=== PATIENT | male | born 1930 | race Caucasian/White ===

== ENCOUNTER 2017-07-06 12:33 | Inpatient (IN) | payer MEDICARE ==
[2017-07-06 14:02] LABS: #Basophils 0.1 thou/uL (0.0-0.2); #Eosinphils 0.1 thou/uL (0.0-0.7); #Lymphocytes 2.6 thou/uL (1.20-3.40); #Monocytes 0.5 thou/uL (0.11-0.59); #Neutrophils 4.9 thou/uL (1.40-6.50); %Basophils 1.1 % (0.0-1.0); %Eosinophils 1.4 % (0.0-10.0); %Lymphocytes 31.6 % (21.0-51.0); %Monocytes 5.5 % (0.0-10.0); Hematocrit 46.1 % (42.0-52.0); Mean Platelet Volume 7.3 fL (7.4-10.4); Red Blood Cell (RBC) Count 4.88 mill/uL (4.70-6.10); White Blood Cell (WBC) Count 8.2 thou/uL (4.8-10.8)
[2017-07-06 14:09] LABS: ALT (SGPT) 11 U/L (8-55); AST (SGOT) 16 U/L (5-34); Alkaline Phosphatase 64 U/L (40-150); Anion Gap 15 mmol/L (10-20); BUN (Urea Nitrogen) 25 mg/dL (8.4-25.7); Bilirubin, Total 1.2 mg/dL (0.2-1.2); Calc. Creatinine Clearance 0 mL/min (70-130); Calcium 9.1 mg/dL (7.8-10.44); Carbon Dioxide 27 mmol/L (23-31); Chloride 108 mmol/L (98-107); Estimated GFR-MDRD 70; Globulin 3.3 g/dL (2.4-3.5); Protein, Total 6.8 g/dL (5.8-8.1)
[2017-07-06 14:14] LABS: Bilirubin Negative (Negative); Blood, Urine Negative (Negative); Glucose, Urine (Dipstick) Negative (Negative); Ketone, Urine Negative (Negative); Nitrite Negative (Negative); Protein, Urine (Dipstick) Negative (Neg-Trace); Urobilinogen 0.2 mg/dL (0.2-1.0)
[2017-07-06 14:15] LABS: Troponin I 0.017 ng/mL (< 0.028)
[2017-07-06 14:27] LABS: Bacteria/HPF None Seen HPF (None Seen); Hyaline Casts/LPF 4-6 HYALINE CAST LPF (0-3 Hyaline); Squamous Epithelial 0-3 HPF (0-3)
--- NOTE | 2017-07-06 14:31 | CT ---
CT HEAD NONCONTRAST: Date: 07/06/17 HISTORY: Altered mental status. COMPARISON: 01/22/08. FINDINGS: There is no evidence of acute intracranial hemorrhage or infarct. Diffuse cortical atrophy is simila r in appearance to the previous exam. There is no mass effect or shift of midline structures. Visual ized paranasal sinuses remain well aerated. IMPRESSION: No acute intracranial abnormalities are demonstrated on noncontrast CT head. POS: [facility]
--- NOTE | 2017-07-06 14:56 | RAD ---
AP VIEW CHEST: HISTORY: Altered mental status. DATE: 07/06/17. COMPARISON: Comparison is made to previous exam from 04/09/17. FINDINGS: AP view chest demonstrates ectasia of the aorta. Intracardiac pacing device is seen. Cardiomegaly is noted. Mild to moderate pulmonary vascular congestion is seen. No evidence of effusions, pneumo david, or pneumothorax is seen. IMPRESSION: Unremarkable AP view chest. POS: [facility]
[2017-07-06 16:26] LABS: Magnesium 2.6 mg/dL (1.6-2.6); Phosphorus 3.6 mg/dL (2.3-4.7)
[2017-07-06 17:25] VITALS: BMI 34.5
[2017-07-06] MEDS ORDERED: Acetaminophen 325 MG TAB PO PRN (17:32)
[2017-07-06] MEDS ORDERED: Ondansetron HCl/PF 4 MG/2 ML Vial IVP PRN ×2 (17:32→18:46)
[2017-07-06] MEDS ORDERED: Ondansetron ODT 4 MG TAB SL PRN (17:32)
[2017-07-06] MEDS ORDERED: FLU VACC TS2017-18 (>65YR) 0.5 ML SYRINGE IM ONE (18:30)
[2017-07-06] MEDS ORDERED: Eucerin (Mineral Oil/Petrolatum,White) 30 gm Jar TOP PRN (18:38)
[2017-07-06] MEDS ORDERED: Polyethylene Glycol 3350 17 GM Packet PO PRN (18:38)
[2017-07-06] MEDS ORDERED: cloNIDine HCl 0.1 MG TAB PO PRN (18:38)
[2017-07-06] MEDS ORDERED: Diabetic Tussin 200 MG/10 ML UDCUP PO PRN (18:38)
[2017-07-06] MEDS ORDERED: Loratadine 10 MG TAB PO PRN (18:38)
[2017-07-06] MEDS ORDERED: Nitroglycerin 0.4 MG TAB (25 Tab Bottle) PO PRN (18:42)
[2017-07-06] MEDS ORDERED: Calcium Carbonate 500 MG ChewTAB PO PRN (18:46)
[2017-07-06] MEDS ORDERED: Ondansetron ODT 4 MG TAB PO PRN (18:46)
[2017-07-06] MEDS ORDERED: Senokot 8.6 MG TAB PO PRN (18:46)
[2017-07-06] MEDS ORDERED: Sodium Chloride 0.9% 1,000 ML IV SCH (19:00)
--- NOTE | 2017-07-06 19:08 | HP ---
DATE OF ADMISSION: 07/06/2017 PRIMARY CARE PHYSICIAN: Dr. Vin Jiang. PRIMARY ELECTROMEDICAL SERVICE ENGINEER: Dr. Rashaun Leon. CODE STATUS: FULL CODE. Surrogate decision maker is daughterPamela. CHIEF COMPLAINT: Altered mentation. HISTORY OF PRESENT ILLNESS: The patient is an 87-year-old male with chronic atrial fibrillation on anticoagulation, coronary artery disease, hypertension, and COPD, presented to the emergency room wi th altered mentation. At this time, not much information is available from the patient. History ob tained from the son at the bedside. The patient currently lives at home with his family. Ambulates with the help of a cane. He is able to communicate with the family. Over the last two days, the patient has been confused, especially in the morning and in the evenings . The confusion each time lasts up to 2-3 hours. He also had some loose stools on and off over the last 1 week. No fall stroke-like symptoms reported. The patient was generally weak. He sometimes had a blank stare when asked any questions. He is usually very talkative. No chest pain, shortnes s of breath, palpitations, fevers or chills reported. In the emergency room, initial vital signs showed temperature 97.9, respirations 18, pulse of 74 wit h blood pressure 108/67 with O2 saturation of 97% on room air. His initial CT scan of the brain was normal. Chest x-ray was negative for infiltrate or significant edema. His EKG showed paced rhythm . Cardiac enzymes were normal. His urinalysis showed 4-6 WBCs with 4-6 hyaline cast with small jermaine kocyte esterase. Urine cultures were sent. He received a dose of ciprofloxacin in the emergency ro om. PAST MEDICAL HISTORY: 1. Sick sinus syndrome, status post pacemaker in 2007. 2. Chronic atrial fibrillation on anticoagulation. 3. COPD. 4. Obesity with a BMI of 34.6. 5. Peripheral vascular disease. 6. Chronic venous stasis. 7. Diet controlled diabetes mellitus type 2. 8. History of [id number] aortic stenosis. PAST SURGICAL HISTORY: 1. Pacemaker placement. 2. Amputation of the first digit. 3. Testicular surgery. ALLERGIES: The patient is allergic to PENICILLIN. CURRENT HOME MEDICATIONS: The patient takes Xarelto 20 mg daily, Lasix 40 mg daily, potassium chlor pili 10 mEq daily, he takes other [id number] supplements. FAMILY HISTORY: Positive for hypertension. SOCIAL HISTORY: As discussed above. No smoking, alcohol or drug use. REVIEW OF SYSTEMS: Cannot be reliably obtained from the patient due to current cognitive status. PHYSICAL EXAMINATION: VITAL SIGNS: As discussed above. GENERAL: An 87-year-old male in no apparent distress, appears comfortable. HEENT: Head: Atraumatic and normocephalic, sclerae are anicteric. Dry mucous membranes. No oral lesion. NECK: Supple, no JVD, no carotid bruit. LUNGS: Showed scattered rhonchi. There was no significant wheezing. There were minimal rales at b ases. Lungs were symmetrical. CARDIOVASCULAR: Heart S1, S2 present. Heart sounds were somewhat distant. No significant rubs or gallops appreciated. There was a 2/6 systolic ejection murmur over the aortic area. ABDOMEN: Soft, nontender, bowel sounds present. EXTREMITIES: There are changes from chronic venous stasis in bilateral lower extremities up to the mid leg. There is 1+ edema in bilateral lower extremities. No calf tenderness. SKIN: Warm and dry. LYMPH NODES: No palpable lymph nodes in the neck. PERIPHERAL VASCULAR: Radial pulses palpable bilaterally. MUSCULOSKELETAL: No joint swelling or tenderness. PSYCHIATRY: The patient is alert and awake with on and off orientation. NEUROLOGIC: Exam was limited due to current cognitive status. Limited examination showed cranial n erves II-XII normal on examination. Power was 4-5/5 in all extremities. Sensation to touch was nor mal bilaterally. LABORATORY FINDINGS: As discussed above. Creatinine was 1.01 with BUN 25. Sodium 146, potassium 4 .4, and chloride of 108. CBC showed WBC 8.2 with hemoglobin 14.2. EKG and chest x-ray by my review as discussed above. IMPRESSION: 1. Toxic metabolic encephalopathy, suspected secondary to urinary tract infection. We will rule ou t other etiology. 2. Chronic atrial fibrillation on anticoagulation with Xarelto. 3. Chronic obstructive pulmonary disease. The patient does not use any nebulizer treatments or oxy gen at home. 4. Hypertension, currently not on any medications. 5. Diet controlled diabetes mellitus type 2. 6. Coronary artery disease followed by Dr. Rashaun Leon. 7. Sick sinus syndrome, status post pacemaker. 8. Peripheral vascular disease. 9. Chronic lower extremity venous stasis. 10. Obesity with a body mass index 34.6. PLAN: The patient will be monitored in the stroke unit. We will hold aspirin due to advanced age. The patient is already on Xarelto, which will be continued. Empiric antibiotics will be started fo r urinary tract infection. We will also get renal stone protocol to rule out obstructive uropathy. We will repeat labs in a.m. We will check vitamin B12 and folic acid. We will hold diuretics for now. Echocardiogram will be done. Fall precautions. precautions. We will avoid SCDs d ue to peripheral vascular disease. Plan of care was discussed with the patient and the family at the bedside, they stated understanding . The patient will require at least 2-3 days for stabilization.
[2017-07-06] MEDS: Rivaroxaban 10 MG TAB PO SCH (20:39)
[2017-07-06] MEDS: Meropenem 1 GM in Sodium Chloride 0.9% 100 ML IVPB SCH (20:39)
[2017-07-06] MEDS: Famotidine 20 MG TAB PO SCH (20:40)
[2017-07-06] MEDS: Docusate 100 MG CAP PO SCH (20:40)
[2017-07-07] MEDS: Meropenem 1 GM in Sodium Chloride 0.9% 100 ML IVPB SCH (04:19)
[2017-07-07 05:16] LABS: Anion Gap 9 mmol/L (10-20); BUN (Urea Nitrogen) 22 mg/dL (8.4-25.7); BUN/Creatinine Ratio 21.57; Calc. Creatinine Clearance 72 mL/min (70-130); Calcium 8.4 mg/dL (7.8-10.44); Carbon Dioxide 27 mmol/L (23-31); Chloride 107 mmol/L (98-107); Cholesterol 123 mg/dl (< 200 Desired); Estimated GFR-MDRD 69; LDL Cholesterol, Calculated 77 mg/dL; Phosphorus 3.2 mg/dL (2.3-4.7)
[2017-07-07] MEDS ORDERED: FLU VACC TS2017-18 (>65YR) 0.5 ML SYRINGE IM ONE (09:00)
[2017-07-07] MEDS ORDERED: Folic Acid 1 MG TAB PO SCH (09:00)
--- NOTE | 2017-07-07 09:10 | CT ---
CT ABDOMEN AND PELVIS NONCONTRAST: HISTORY: Urinary tract infection. Joint pain. FINDINGS: No comparison. Each renal collecting system and ureter are decompressed. A 0.7 cm calculus is pres ent within a nondilated calyx at the inferior pole of the left kidney. At least 4 calcifications we re present within nondilated calyces of the right kidney, measuring up to 0.7 cm greatest diameter. The urinary bladder is incompletely distended. Lack of contrast limits evaluation for other abnormalities. There is mild atelectasis at the lung b ases. Atrophy of each kidney is noted. There is calcification in the arterial structures. Fat pro trudes into an umbilical hernia. The multilobular gaseous and high-density structure in the right u pper quadrant has the appearance of gallstones. There are degenerative changes of the lumbar spine. IMPRESSION: 1. Nonobstructing 7 mm bilateral renal calculi. No evidence of urinary tract obstruction. 2. Cholelithiasis. 3. Atherosclerosis. POS: [facility]
[2017-07-07] MEDS: Multivit, Therapeutic 1 TAB PO SCH (09:36)
[2017-07-07] MEDS: Folic Acid 1 MG TAB PO SCH ×2 (09:37→20:44)
[2017-07-07] MEDS: Famotidine 20 MG TAB PO SCH ×2 (09:37→20:44)
[2017-07-07] MEDS: Docusate 100 MG CAP PO SCH (09:38)
[2017-07-07] MEDS: Cyanocobalamin (Vitamin B-12) 1,000 MCG TAB PO SCH (09:38)
--- NOTE | 2017-07-07 12:09 | PDOC.PN ---
- Subjective Encounter Start Date: 07/07/17 Encounter Start Time: 10:30 Patient seen and examined. No new complaints. No overnight events. Mentation improving. - Objective Resuscitation Status: Resuscitation Status FULL:Full Resuscitation MAR Reviewed: Yes Vital Signs & Weight: Vital Signs (12 hours) Temp Pulse Pulse Pulse Resp BP BP 07/07/17 11:48 97.5 F L 72 14 07/07/17 10:07 82 95 136/61 121/65 07/07/17 08:00 97.8 F 70 14 07/07/17 07:43 97.8 F 70 14 07/07/17 03:44 98.6 F 72 20 07/07/17 00:23 07/07/17 00:17 98.3 F 73 20 BP Pulse Ox 07/07/17 11:48 129/60 92 L 07/07/17 10:07 07/07/17 08:00 93 L 07/07/17 07:43 87/50 L 93 L 07/07/17 03:44 113/56 L 97 07/07/17 00:23 117/53 L 07/07/17 00:17 96/47 L 97 Weight Weight 227 lb 5 oz I&O: 07/06/17 07/07/17 07/08/17 06:59 06:59 06:59 Intake Total 1085 Balance 1085 Result Diagrams: 07/06/17 13:08 07/07/17 04:36 Radiology Reviewed by me: Yes (CT abd - renal calculi, cholelithiasis) EKG Reviewed by me: Yes (Tele paced/underlying Afib) Phys Exam - Physical Examination Constitutional: NAD HEENT: PERRLA Respiratory: no wheezing, no rales, no rhonchi, clear to auscultation bilateral Cardiovascular: RRR, no rub no heaves/pulsations Gastrointestinal: soft, non-tender, no distention, positive bowel sounds Musculoskeletal: no edema chronic venous stasis Neurological: non-focal, normal sensation, moves all 4 limbs Psychiatric: A&O x 3 Dx/Plan - Plan cont current plan of care IMPRESSION: 1. Toxic metabolic encephalopathy, suspected secondary to urinary tract infection. 2. Chronic atrial fibrillation on anticoagulation with Xarelto. 3. Cholelithiasis/ Nononstructing renal calculi 4. Hypertension, currently not on any medications. 5. Diet controlled diabetes mellitus type 2. 6. Coronary artery disease followed by Dr. Rashaun Leon. 7. Sick sinus syndrome, status post pacemaker. 8. Peripheral vascular disease. 9. Chronic lower extremity venous stasis. 10. Obesity with a body mass index 34.6. 11. Chronic obstructive pulmonary disease. PLAN: * DC Meropenem * CT abd reviewed * AM labs * DC IVF * Start Macrobid for UTI * RUQ ultrasound due to cholelithiasis (gaseous opacity on CT) * Lasix on hold. * Await Echo * Cont Xarelto * Await stool w/u * d/w grandson - he stated understanding Review of Systems - Review of Systems Constitutional: negative: Fever, Chills, Sweats, Weakness, Malaise, Other Respiratory: negative: Cough, Dry, Shortness of Breath, Hemoptysis, SOB with Excertion, Pleuritic Pain, Sputum, Wheezing Cardiovascular: negative: Chest Pain, Palpitations, Orthopnea, Paroxysmal Noc. Dyspnea, Edema, Light Headedness, Other Gastrointestinal: negative: Nausea, Vomiting, Abdominal Pain, Diarrhea, Constipation, Melena, Hematochezia, Other Neurological: negative: Weakness, Numbness, Incoordination, Change in Speech, Confusion, Seizures, Other - Medications/Allergies Allergies/Adverse Reactions: Allergies Allergy/AdvReac Type Severity Reaction Status Date / Time Penicillins Allergy Unverified 07/06/17 16:05 Medications: Current Medications Acetaminophen (Tylenol) 650 mg PO Q4H PRN PRN Reason: Headache/Fever or Pain Albuterol/Ipratropium (Duoneb) 3 ml NEB [id number] PRN PRN Reason: SOB &/or Wheezing Calcium Carbonate (Tums) 1,000 mg PO Q4H PRN PRN Reason: Heartburn or Indigestion Clonidine HCl (Catapres) 0.1 mg PO Q4H PRN PRN Reason: Systolic BP > 180 Cyanocobalamin (Vitamin B-12) 1,000 mcg PO DAILY [facility] Last Admin: 07/07/17 09:38 Dose: 1,000 mcg Docusate Sodium (Colace) 100 mg PO BID [facility] Last Admin: 07/07/17 09:38 Dose: 100 mg Famotidine (Pepcid) 20 mg PO BID [facility] Last Admin: 07/07/17 09:37 Dose: 20 mg Folic Acid (Folvite) 1 mg PO BID [facility] Last Admin: 07/07/17 09:37 Dose: 1 mg Guaifenesin (Robitussin Sf) 200 mg PO Q4H PRN PRN Reason: Cough Hydralazine HCl (Apresoline) 5 mg SLOW IVP Q4H PRN PRN Reason: SBP Greater Than 180 Loratadine (Claritin) 10 mg PO DAILYPRN PRN PRN Reason: Sinus Symptoms Mineral Oil/White Petrolatum (Eucerin Cream) 0 gm TOP BIDPRN PRN PRN Reason: Dry Skin Multivitamins (Theragran) 1 tab PO DAILY [facility] Last Admin: 07/07/17 09:36 Dose: 1 tab Nitrofurantoin Macrocrystals (Macrobid) 100 mg PO BID [facility] Nitroglycerin (Nitrostat) 0.4 mg PO Q5MIN PRN PRN Reason: Chest Pain Ondansetron HCl (Zofran Odt) 4 mg PO Q6H PRN PRN Reason: Nausea/Vomiting Ondansetron HCl (Zofran) 4 mg IVP Q6H PRN PRN Reason: Nausea/Vomiting Polyethylene Glycol (Miralax) 17 gm PO DAILY PRN PRN Reason: Constipation Rivaroxaban (Xarelto) 20 mg PO QPM [facility] Last Admin: 07/06/17 20:39 Dose: 20 mg Senna (Senokot) 2 tab PO HSPRN PRN PRN Reason: Constipation Sodium Chloride (Flush - Normal Saline) 10 ml IVF PRN PRN PRN Reason: Saline Flush Sodium Chloride (Flush - Normal Saline) 10 ml IVF Q12HR [facility] Last Admin: 07/07/17 09:39 Dose: Not Given
--- NOTE | 2017-07-07 15:20 | ULT ---
RIGHT UPPER QUADRANT SONOGRAM: HISTORY: Right upper quadrant pain. FINDINGS: Multiple echogenic stones are apparent within the gallbladder lumen. The gallbladder wall is not we ll defined and is partially obscured by overlying bowel. No pericholecystic fluid is evident. Comm on duct is 0.6 cm diameter. IMPRESSION: Cholelithiasis. Poor definition of the gallbladder wall without inflammation reliably demonstrated. Clinical correlation regarding other signs and symptoms of acute cholecystitis is required. POS: [facility]
[2017-07-07] MEDS: Rivaroxaban 10 MG TAB PO SCH (20:44)
[2017-07-07] MEDS: Nitrofurantoin Monohyd/M-Cryst 100 MG CAP PO SCH (20:44)
[2017-07-08] MEDS ORDERED: FLU VACC TS2017-18 (>65YR) 0.5 ML SYRINGE IM ONE (09:00)
--- NOTE | 2017-07-08 10:08 | PDOC.PN ---
- Subjective Encounter Start Date: 07/08/17 Encounter Start Time: 09:35 Subjective: f/u for AMS, UTI and likely delirium due metabolic influence on top of -: dementia. Family reports intermittent confusion. - Objective Resuscitation Status: Resuscitation Status FULL:Full Resuscitation MAR Reviewed: Yes Vital Signs & Weight: Vital Signs (12 hours) Temp Pulse Resp BP Pulse Ox 07/08/17 07:41 97.8 F 70 16 120/56 L 97 07/08/17 03:32 97.7 F 77 20 138/65 98 07/08/17 00:18 98.2 F 78 20 106/50 L 98 Weight Weight 227 lb 5 oz I&O: 07/07/17 07/08/17 07/09/17 06:59 06:59 06:59 Intake Total 1085 2170 Balance 1085 2170 Result Diagrams: 07/06/17 13:08 07/07/17 04:36 Additional Labs: Microbiology 07/07/17 Unknown Stool C. difficile GDH Antigen & Toxins - Final 07/07/17 05:17 Stool Campylobacter Antigen Assay - Final 07/07/17 05:17 Stool Shiga Toxin Test - Final 07/06/17 14:02 Urine clean catch Urine Culture - Preliminary Presumptive Proteus mirabilis Radiology Reviewed by me: Yes (2D Echo - EF 50-55%, diastolic dysfxn, mod LAE) EKG Reviewed by me: Yes (Tele - V-paced in 70's) Phys Exam - Physical Examination Constitutional: NAD HEENT: PERRLA, oral pharynx no lesions Neck: no JVD, supple Respiratory: no wheezing, clear to auscultation bilateral Cardiovascular: RRR Gastrointestinal: soft, non-tender, no distention, positive bowel sounds Musculoskeletal: pulses present, edema present Neurological: normal sensation, moves all 4 limbs A x O x 1 Deviation from normal: chronic venous stasis changes bilateral LE's Skin: normal turgor Dx/Plan (1) Encephalopathy acute Code(s): G93.40 - ENCEPHALOPATHY, UNSPECIFIED Status: Acute Comment: Multifactorial including metabolic and UTI factors, educate family, supportive care (2) Delirium Code(s): R41.0 - DISORIENTATION, UNSPECIFIED Status: Acute Comment: Intermittent likely due to metabolic influence and UTI, supportive care (3) UTI (urinary tract infection) Status: Acute Qualifiers: Urinary tract infection type: acute cystitis Comment: Continue Macrobid 100mg BID (4) Dementia Code(s): F03.90 - UNSPECIFIED DEMENTIA WITHOUT BEHAVIORAL DISTURBANCE Status: Chronic Qualifiers: Dementia type: Alzheimer's disease Comment: Advanced dementia (5) Chronic venous stasis dermatitis of both lower extremities Code(s): I87.2 - VENOUS INSUFFICIENCY (CHRONIC) (PERIPHERAL) Status: Chronic Comment: Local WCT, dressing care, home WC (6) CKD (chronic kidney disease) stage 2, GFR 60-89 ml/min Code(s): N18.2 - CHRONIC KIDNEY DISEASE, STAGE 2 (MILD) Status: Chronic (7) Physical deconditioning Code(s): R53.81 - OTHER MALAISE Status: Chronic Comment: PT/OT for home (8) Chronic atrial fibrillation Code(s): I48.2 - CHRONIC ATRIAL FIBRILLATION Status: Chronic Comment: Rate controlled, continue Xarelto (9) Cholelithiasis without obstruction Code(s): K80.20 - CALCULUS OF GALLBLADDER W/O CHOLECYSTITIS W/O OBSTRUCTION Status: Chronic Qualifiers: Cholelithiasis location: gallbladder Cholecystitis presence: without cholecystitis Qualified Code(s): K80.20 - Calculus of gallbladder without cholecystitis without obstruction Comment: Incidental cholelithiasis, observe - Plan plan discussed w/ family, continue antibiotics, PT/OT, social insurance adviser, out of bed/ambulate Stable currently -: Continue Macrobid 100mg BID -: PT for mobilization -: Arrange for HH with increased frequency of PT and wound care -: Likely home in 24h * .
[2017-07-08] MEDS: Famotidine 20 MG TAB PO SCH ×2 (10:11→20:22)
[2017-07-08] MEDS: Nitrofurantoin Monohyd/M-Cryst 100 MG CAP PO SCH ×2 (10:11→20:22)
[2017-07-08] MEDS: Multivit, Therapeutic 1 TAB PO SCH (10:11)
[2017-07-08] MEDS: Folic Acid 1 MG TAB PO SCH ×2 (10:12→20:22)
[2017-07-08] MEDS: Cyanocobalamin (Vitamin B-12) 1,000 MCG TAB PO SCH (10:12)
[2017-07-08] MEDS: Acetaminophen 325 MG TAB PO PRN (20:21)
[2017-07-08] MEDS: Rivaroxaban 10 MG TAB PO SCH (20:22)
[2017-07-09] MEDS: Multivit, Therapeutic 1 TAB PO SCH (08:45)
[2017-07-09] MEDS: Famotidine 20 MG TAB PO SCH (08:45)
[2017-07-09] MEDS: Nitrofurantoin Monohyd/M-Cryst 100 MG CAP PO SCH (08:46)
[2017-07-09] MEDS: Cyanocobalamin (Vitamin B-12) 1,000 MCG TAB PO SCH (08:46)
[2017-07-09] MEDS: Folic Acid 1 MG TAB PO SCH (08:46)
[2017-07-09] MEDS: Acetaminophen 325 MG TAB PO PRN (08:51)
--- NOTE | 2017-07-09 12:49 | DIS ---
DATE OF ADMISSION: 07/06/2017 DATE OF DISCHARGE: 07/09/2017 DISCHARGE DIAGNOSES: 1. Acute encephalopathy with metabolic component, multifactorial, improved. 2. Acute delirium, secondarily to #1 including urinary tract infection, improved. 3. Advanced dementia, likely Alzheimer's type. 4. Urinary tract infection with Proteus species. 5. Chronic venous stasis dermatitis of bilateral lower extremities. 6. Chronic kidney disease stage 2. 7. Physical deconditioning. 8. Chronic atrial fibrillation, rate controlled with chronic anticoagulation with Xarelto. 9. Cholelithiasis without evidence of cholecystitis or obstruction. CONSULTATIONS: None. PERTINENT LABORATORY DATA AND X-RAY FINDINGS: Sodium ranged between 139-146, creatinine ranged betw een 1.01-1.02 with estimated GFR 70, phosphorus 3.6, magnesium 2.6. LFTs within normal limits. BNP 85, total cholesterol 123, triglycerides 93, HDL 27, and LDL 77. Vitamin B12 level 482, folate 4.8 . CBC within normal limits. Urine culture dated 07/06/2017 showed less than 10,000 colonies of Pro teus mirabilis. Stool culture dated 07/07/2017 showed normal tiffanie. C. difficile antigen and toxin dated 07/07/[address] of the brain without contrast dated 07/06/2017 showed no acute intra cranial process. Portable chest x-ray dated 07/06/2017 showed no acute cardiopulmonary process. CT of the abdomen and pelvis dated 07/07/2017 showed nonobstructive bilateral renal calculi. Cholelit hiasis noted. Abdominal ultrasound dated 07/07/2017 showed cholelithiasis without evidence of infla mmatory process. A 2D transthoracic echocardiogram dated 07/07/2017 showed ejection fraction of 50%-55%. Diastolic d ysfunction noted. Moderate to severe left atrial enlargement. HOSPITAL COURSE: Patient was admitted to the stroke unit after initially presenting with altered me ntation in the context of advanced baseline dementia. The patient was treated symptomatically with IV fluid hydration as well as institution of IV antibiotic therapy after concern for suspected urina ry tract infection. Urine culture revealed Proteus species in low population; however, patient jeanette ined on antibiotic therapy through the remainder of the hospital course. The patient also underwent extensive evaluation looking for possible underlying infectious process without hard evidence other than urine findings. Neuroimaging was essentially unremarkable and patient stabilized and was func tional at baseline levels prior to discharge. Due to patient's overall comorbid status, decondition ing, and dementia, patient was deemed an appropriate candidate for frequent home health visits inclu ding wound care assistance with left lower extremity, venous stasis ulcer, and skin breakdown. Over all, the patient remained clinically stable through the remainder of the hospital course and ready f or discharge on 07/09/2017. DISCHARGE MEDICATIONS: 1. Macrobid 100 mg 1 tablet p.o. b.i.d. x5 days. 2. Vitamin C 500 mg 1 tablet p.o. daily. 3. Vitamin D3 2000 units 2 capsules p.o. daily. 4. Cranberry extract 400 mg 1 tablet p.o. daily. 5. Vitamin B12 5000 mcg per mL, 2 mL sublingually daily. 6. Lasix 40 mg 1 tablet p.o. daily. 7. Echinacea and goldenseal 1 capsule p.o. daily. 8. Lecithin 1200 mg p.o. t.i.d. 9. Multivitamin 1 tablet p.o. daily. 10. Potassium chloride 10 mEq 1 tablet p.o. daily. 11. Xarelto 20 mg 1 tablet p.o. daily. 12. Selenium 200 mcg p.o. daily. FOLLOWUP: Patient will follow up with his primary care provider, Dr. Vin Jiang within 7 days of discharge. CONDITION ON DISCHARGE: Fair. ACTIVITY: Ad madhavi. Rolling walker with standby assistance and general fall risk precautions. DIET: Regular. CODE STATUS: FULL. DISPOSITION: Home with home health services including PT, OT with wound care services on 07/09/2017 . Total time preparing and coordinating this discharge is 35 minutes.
[2017-07-09 16:15] VITALS: TEMP 97
[2017-07-10 07:37] VITALS: BP 124/57
== END 2017-07-09 17:17 | disposition home health service (06) | DRG 689 ==
LOC: ERS 12:33 → 2SE 15:40
PROVIDERS: ADMIT Internal Medicine; ATTEND Internal Medicine
DX: N39.0 Urinary tract infection, site not specified (principal); G93.41 Metabolic encephalopathy; I48.2 Chronic atrial fibrillation; G30.9 Alzheimer's disease, unspecified; J44.9 Chronic obstructive pulmonary disease, unspecified; F02.80 Dementia in other diseases classified elsewhere, unspecified severity, without behavioral disturbance, psychotic disturbance, mood disturbance, and anxiety; B96.4 Proteus (mirabilis) (morganii) as the cause of diseases classified elsewhere; I87.2 Venous insufficiency (chronic) (peripheral); N18.2 Chronic kidney disease, stage 2 (mild); Z79.01 Long term (current) use of anticoagulants; K80.20 Calculus of gallbladder without cholecystitis without obstruction; Z95.0 Presence of cardiac pacemaker; E66.9 Obesity, unspecified; Z68.34 Body mass index [BMI] 34.0-34.9, adult
CPT/HCPCS: 36415; 51701; 70450; 71010; 74176; 76705; 80053; 80061; 80069; 81003; 81015; 82553; 82607; 82746; 83735; 83880; 84100; 84484; 85025; 87015; 87045; 87046; 87077; 87086; 87186; 87324; 87449; 87899; 93005; 93306; 96360; A4216; G8978-GP-CK; G8979-GP-CJ; G8987-GO-CM; G8988-GO-CJ; J0744; J2185; J7050

== ENCOUNTER 2018-03-01 01:41 | Inpatient (IN) | payer MEDICARE ==
[2018-03-01] MEDS ORDERED: Bacitracin Zinc 1 Packet ONE (01:49)
[2018-03-01 02:17] LABS: #Eosinphils 0.1 thou/uL (0.0-0.7); #Lymphocytes 2.2 thou/uL (1.20-3.40); #Monocytes 0.5 thou/uL (0.11-0.59); #Neutrophils 4.7 thou/uL (1.40-6.50); %Basophils 0.6 % (0.0-1.0); %Eosinophils 1.2 % (0.0-10.0); %Lymphocytes 29.8 % (21.0-51.0); %Monocytes 6.7 % (0.0-10.0); %Neutrophils 61.8 % (42.0-75.0); Hemoglobin 13.3 g/dL (14.0-18.0); Mean Corpuscular HGB CONC 33.4 g/dL (32.0-36.0); Mean Corpuscular Hemoglobin 31.1 pg (27.0-31.0); Mean Corpuscular Volume 93.1 fl (80.0-94.0); Mean Platelet Volume 6.8 fL (7.4-10.4); Platelet Count 229 thou/uL (130-400); RBC Distribution Width 12.8 % (11.5-14.5); Red Blood Cell (RBC) Count 4.27 mill/uL (4.70-6.10); White Blood Cell (WBC) Count 7.5 thou/uL (4.8-10.8)
[2018-03-01 02:36] LABS: ALT (SGPT) Less than 7 U/L (8-55); AST (SGOT) 11 U/L (5-34); Albumin 3.6 g/dL (3.4-4.8); Alkaline Phosphatase 48 U/L (40-150); Anion Gap 14 mmol/L (10-20); BUN (Urea Nitrogen) 35 mg/dL (8.4-25.7); Bilirubin, Total 1.3 mg/dL (0.2-1.2); Calc. Creatinine Clearance 0 mL/min (70-130); Carbon Dioxide 24 mmol/L (23-31); Chloride 107 mmol/L (98-107); Estimated GFR-MDRD 48; Glucose 134 mg/dL (83-110); Potassium 3.4 mmol/L (3.5-5.1); Protein, Total 6.6 g/dL (5.8-8.1); Sodium 142 mmol/L (136-145)
[2018-03-01 03:06] LABS: Bilirubin Negative (Negative); Blood, Urine Small (Negative); Clarity CLOUDY (Clear); Glucose, Urine (Dipstick) Negative (Negative); Leukocyte Trace (Negative); Nitrite Negative (Negative); Protein, Urine (Dipstick) 30 mg/dL (Neg-Trace); Specific Gravity, Urine 1.014 (1.002-1.036)
[2018-03-01 03:07] LABS: Bacteria/HPF None Seen HPF (None Seen); Hyaline Casts/LPF 7-10 HYALINE CAST LPF (0-3 Hyaline); Pathc Cast-AUWi Flag 1.59 (0-2.49); RBC/HPF 0-3 HPF (0-3)
[2018-03-01 03:09] LABS: Yeast-AUWi Flag 51.8 (0-25.0)
[2018-03-01 03:19] LABS: Manual Microscopic Reviewed? No Path Casts Seen; Renal Epithelial None Seen HPF (0-3); Transitional Epithelial NONE SEEN HPF (0-3); Yeast-All Forms None Seen HPF (None Seen)
[2018-03-01] MEDS ORDERED: Acetaminophen 325 MG TAB PO PRN ×2 (07:15→07:47)
[2018-03-01] MEDS ORDERED: Ondansetron HCl/PF 4 MG/2 ML Vial IVP PRN (07:47)
[2018-03-01] MEDS ORDERED: Ondansetron ODT 4 MG TAB SL PRN (07:47)
[2018-03-01 07:55] VITALS: BMI 31.7
--- NOTE | 2018-03-01 08:06 | RAD ---
ONE VIEW CHEST: HISTORY: Fever. COMPARISON: 07/06/17. FINDINGS: Diminished lung volumes, likely due to poor inspiratory effort. Atherosclerosis of the aorta is note d. Heart is enlarged. Stable left-sided transvenous pacemaker. Small left-sided pleural effusion. Adequate aeration of the right and left lung. No pneumothorax. IMPRESSION: 1. Small left-sided pleural effusion. 2. Atherosclerosis. 3. Cardiomegaly. POS: [facility]
[2018-03-01] MEDS: Sodium Chloride 0.9% 1,000 ML IV SCH ×4 (09:01→17:42)
[2018-03-01] MEDS ORDERED: COUMADIN PO PRN (09:16)
[2018-03-01 09:58] LABS: INR-International Normal Ratio 2.1; Prothrombin Time 24.4 SEC (12.0-14.7)
[2018-03-01] MEDS ORDERED: LEVAQUIN IVPB PRN (10:39)
[2018-03-01] MEDS: Warfarin Sodium 2.5 MG TAB PO SCH (17:41)
[2018-03-01] MEDS ORDERED: Sodium Chloride 0.9% 500 ML IVPB SCH (17:45)
[2018-03-02] MEDS: Sodium Chloride 0.9% 1,000 ML IV SCH ×2 (05:30→16:01)
[2018-03-02 05:54] LABS: #Eosinphils 0.2 thou/uL (0.0-0.7); #Lymphocytes 2.4 thou/uL (1.20-3.40); #Monocytes 0.4 thou/uL (0.11-0.59); #Neutrophils 4.1 thou/uL (1.40-6.50); %Basophils 0.4 % (0.0-1.0); %Eosinophils 2.9 % (0.0-10.0); %Lymphocytes 33.9 % (21.0-51.0); %Monocytes 5.6 % (0.0-10.0); %Neutrophils 57.2 % (42.0-75.0); Mean Corpuscular HGB CONC 32.9 g/dL (32.0-36.0); Mean Corpuscular Volume 94.2 fl (80.0-94.0); Mean Platelet Volume 6.9 fL (7.4-10.4); Platelet Count 191 thou/uL (130-400); RBC Distribution Width 12.7 % (11.5-14.5); Red Blood Cell (RBC) Count 3.88 mill/uL (4.70-6.10); White Blood Cell (WBC) Count 7.1 thou/uL (4.8-10.8)
[2018-03-02 05:58] LABS: Anion Gap 8 mmol/L (10-20); BUN (Urea Nitrogen) 23 mg/dL (8.4-25.7); Calc. Creatinine Clearance 76 mL/min (70-130); Calcium 8.2 mg/dL (7.8-10.44); Carbon Dioxide 24 mmol/L (23-31); Chloride 111 mmol/L (98-107); Estimated GFR-MDRD 82; Glucose 90 mg/dL (83-110); Potassium 3.2 mmol/L (3.5-5.1); Sodium 140 mmol/L (136-145)
[2018-03-02] MEDS ORDERED: Potassium Chloride 20 MEQ TAB PO SCH (10:00)
[2018-03-02] MEDS ORDERED: Potassium Chloride 10 MEQ in Premix Bag 1 BAG IVPB SCH ×2 (10:00→11:30)
[2018-03-02 12:42] LABS: INR-International Normal Ratio 2.9; Prothrombin Time 31.4 SEC (12.0-14.7)
--- NOTE | 2018-03-02 13:00 | PDOC.PN ---
- Subjective Encounter Start Date: 03/02/18 Encounter Start Time: 10:30 Subjective: pt up in bed no complains - Objective Resuscitation Status: Resuscitation Status FULL:Full Resuscitation Vital Signs & Weight: Vital Signs (12 hours) Temp Pulse Resp BP Pulse Ox 03/02/18 11:51 97.8 F 66 16 94/55 L 100 03/02/18 08:00 98.2 F 70 16 99 03/02/18 07:24 98.2 F 70 16 100/65 99 03/02/18 04:00 98.2 F 69 18 100/67 98 Weight Admit Weight 208 lb 14.4 oz Weight 208 lb 14.4 oz I&O: 03/01/18 03/02/18 03/03/18 06:59 06:59 06:59 Intake Total 4379 Balance 4379 Result Diagrams: 03/02/18 05:28 03/02/18 05:28 Phys Exam - Physical Examination HEENT: PERRLA, moist MMs, sclera anicteric, TM's clear, oral pharynx no lesions , 2+ tonsils Neck: no nodes, no JVD, supple, full ROM Respiratory: no wheezing, no rales, no rhonchi, wheezing present, clear to auscultation bilateral Cardiovascular: RRR, no significant murmur, no rub, gallop, irregular Gastrointestinal: soft, non-tender, no distention, positive bowel sounds Musculoskeletal: no edema, pulses present, edema present Neurological: non-focal, normal sensation, moves all 4 limbs Dx/Plan - Plan 1) acute metabolic encephlopathy 2) dehydration 3) uti 4) afib plan: will continue abx for now. pending final cx. will continue iv fluids. Pt more awake today compared to yesterday. speech saw pt for possible aspiration. pt on mechanical soft diet. * . Review of Systems - Review of Systems Eyes: negative: Pain, Vision Change, Conjunctivae Inflammation, Eyelid Inflammation, Redness, Other ENT: negative: Ear Pain, Ear Discharge, Nose Pain, Nose Discharge, Nose Congestion, Mouth Pain, Mouth Swelling, Throat Pain, Throat Swelling, Other Respiratory: negative: Cough, Dry, Shortness of Breath, Hemoptysis, SOB with Excertion, Pleuritic Pain, Sputum, Wheezing Cardiovascular: negative: chest pain, palpitations, orthopnea, paroxysmal nocturnal dyspnea, edema, light headedness, other Gastrointestinal: negative: Nausea, Vomiting, Abdominal Pain, Diarrhea, Constipation, Melena, Hematochezia, Other Genitourinary: negative: Dysuria, Frequency, Incontinence, Hematuria, Retention , Other Musculoskeletal: negative: Neck Pain, Shoulder Pain, Arm Pain, Back Pain, Hand Pain, Leg Pain, Foot Pain, Other - Medications/Allergies Allergies/Adverse Reactions: Allergies Allergy/AdvReac Type Severity Reaction Status Date / Time clopidogrel [From Plavix] Allergy Verified 03/01/18 10:52 Penicillins Allergy Verified 03/01/18 10:52 Medications: Current Medications Acetaminophen (Tylenol) 650 mg PO Q4H PRN PRN Reason: Headache/Fever or Pain Sodium Chloride (Normal Saline 0.9%) 1,000 mls @ 100 mls/hr IV .Q10H [facility] Last Admin: 03/02/18 05:30 Dose: 1,000 mls Levofloxacin 500 mg/ Device 100 mls @ 100 mls/hr IVPB 1100 [facility] Last Admin: 03/02/18 10:49 Dose: 100 mls Miscellaneous Medication (Pharmacy To Dose) 1 each PO PRN PRN PRN Reason: Pharmacy to dose Miscellaneous Medication (Pharmacy To Dose) 1 each IVPB PRN PRN PRN Reason: Pharmacy to dose Warfarin Sodium (Coumadin) 2.5 mg PO 1700 [facility] Last Admin: 03/01/18 17:41 Dose: 2.5 mg
[2018-03-02] MEDS ORDERED: Nystatin Powder 15 GM BOT TOP PRN (15:25)
--- NOTE | 2018-03-02 15:27 | HP ---
CHIEF COMPLAINT: Generalized weakness and decreased mentation. HISTORY OF PRESENT ILLNESS: Patient is a very pleasant 87-year-old male with past medical history of dementia and atrial fibrillation on anticoagulation who presented to the hospital with possible weak ness and confusion. The patient's daughter was at the bedside who is his caregiver stated that sofya sharif at baseline does have limited mobility; however, for the past couple of days, she has noticed wors ening mobility and mentation. The patient normally is able to converse; however, has not been able t o do so for the past few days. She denies any coughing that she has noticed. Patient's daughter sta raoul that he did have a fever of 101.5 at home. PAST MEDICAL HISTORY: History of sick sinus syndrome, status post pacemaker in 2007, chronic atrial fibrillation on anticoagulation, dementia, COPD, obesity, peripheral vascular disease. 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 ALLERGIES: He is allergic to PENICILLIN as per daughter. MEDICATIONS: 1. He takes warfarin. 2. He takes potassium. SOCIAL HISTORY: Denies any smoking, alcohol or drug use. REVIEW OF SYSTEMS: Cannot obtain from patient, because the patient is currently not awake. PHYSICAL EXAMINATION: VITAL SIGNS: He is afebrile in the hospital at 98.2, heart rate of 69, 18, 98% on room air, blood pr essure 100/67. GENERAL: The patient appears to be sleeping, easily arousable. The patient does appear very dehydra renita. HEENT: Dry mucous membranes. CARDIOVASCULAR: S1, S2 present, irregularly irregular. No murmurs heard. RESPIRATORY: Lungs are clear to auscultation. No rhonchi or wheezes noted. ABDOMEN: Soft, nontender. Bowel sounds are present x2. No pain upon palpation of the abdomen. EXTREMITIES: He does have chronic venous stasis bilateral lower extremities and there maybe +1 pitti ng edema. SKIN: The patient does have significant seborrheic keratosis all over his ears, in his chest wall an d arms. Skin appears to be very frail. Significant bruising seen all over his upper extremities and some in his lower extremities. LYMPHATICS: No palpable lymph nodes noted. MUSCULOSKELETAL: I do not see any joint swelling or tenderness. PSYCHIATRIC: The patient is awake, easily arousable, but not oriented at all. NEUROLOGIC: He is able to move all 4 extremities. LABORATORY DATA AND X-RAY FINDINGS: As the following, WBC of 7.1, hemoglobin of 12.0, hematocrit of 36.6, platelets of 191. His chemistry show sodium of 140, potassium of 3.7, creatinine of 1.02, BUN of 22, INR was 2.9. Patient also had a UA that indicated some trace leukocyte esterase, 11-20 WBCs a nd 7-10 squamous epithelial cells. The patient also had a chest x-ray done, which indicated just jackson e small left-sided pleural effusion, nothing significant. ASSESSMENT AND PLAN: The patient is a very pleasant 87-year-old male who presents to the hospital wi th weakness and some change in mentation. 1. Acute metabolic encephalopathy, could be secondary to dehydration versus his urinary tract infect ion. I will treat the patient with broad spectrum antibiotics and await culture. However, the patie nt does not have leukocytosis. He does appear clinically very dehydrated. 2. Dehydration. We will start the patient on gentle IV hydration and continue to monitor the patien t. 3. Atrial fibrillation. Continue the patient's home medications. 4. Code status. I did talk to the patient's daughter in regards to the patient's advanced age and a dvanced dementia, agreed on patient being DNR. We may consider getting a palliative care for ousmane fajardoy changing the patient's code status.
[2018-03-02] MEDS: Warfarin Sodium 2.5 MG TAB PO SCH (18:02)
[2018-03-03] MEDS: Sodium Chloride 0.9% 1,000 ML IV SCH (01:52)
[2018-03-03 05:34] LABS: INR-International Normal Ratio 2.9; Prothrombin Time 31.6 SEC (12.0-14.7)
[2018-03-03] MEDS: Potassium Chloride 20 MEQ TAB PO SCH ×2 (11:00→18:10)
[2018-03-03] MEDS: cefTRIAXone\\ROCEPHIN 1 GM in Sodium Chloride 0.9% 100 ML IVPB SCH (11:01)
--- NOTE | 2018-03-03 13:21 | PDOC.PN ---
- Subjective Encounter Start Date: 03/03/18 Encounter Start Time: 11:00 Subjective: pt up in bed appears confused. - Objective Resuscitation Status: Resuscitation Status FULL:Full Resuscitation Vital Signs & Weight: Vital Signs (12 hours) Temp Pulse Resp BP BP Pulse Ox 03/03/18 08:05 97.8 F 71 16 98 03/03/18 07:16 97.8 F 71 16 125/77 98 03/03/18 04:00 97.8 F 87 20 108/75 97 Weight Admit Weight 208 lb 14.4 oz Weight 208 lb 14.4 oz I&O: 03/02/18 03/03/18 03/04/18 06:59 06:59 06:59 Intake Total 3269 0312 Output Total 1 Balance 4377 3782 Result Diagrams: 03/02/18 05:28 03/02/18 05:28 Phys Exam - Physical Examination HEENT: PERRLA, moist MMs, sclera anicteric, TM's clear, oral pharynx no lesions , 2+ tonsils Neck: no nodes, no JVD, supple, full ROM Respiratory: no wheezing, no rales, no rhonchi, wheezing present, clear to auscultation bilateral Cardiovascular: RRR, no significant murmur, no rub, gallop, irregular Gastrointestinal: soft, non-tender, no distention, positive bowel sounds chronic venous stasis pt awake oriented to self Dx/Plan - Plan * 1) acute metabolic encephlopathy 2) dehydration 3) uti 4) afib plan: will continue abx for now. pending final cx. will continue iv fluids. Pt more awake today compared to yesterday. speech saw pt for possible aspiration. pt on mechanical soft diet. 03/03 will change abx per urine cx. will change abx. will discontinue Levaquin and start ceftriaxone. will discontinue iv fluids. Review of Systems - Review of Systems Eyes: negative: Pain, Vision Change, Conjunctivae Inflammation, Eyelid Inflammation, Redness, Other ENT: negative: Ear Pain, Ear Discharge, Nose Pain, Nose Discharge, Nose Congestion, Mouth Pain, Mouth Swelling, Throat Pain, Throat Swelling, Other Respiratory: negative: Cough, Dry, Shortness of Breath, Hemoptysis, SOB with Excertion, Pleuritic Pain, Sputum, Wheezing Gastrointestinal: negative: Nausea, Vomiting, Abdominal Pain, Diarrhea, Constipation, Melena, Hematochezia, Other Genitourinary: negative: Dysuria, Frequency, Incontinence, Hematuria, Retention , Other Musculoskeletal: negative: Neck Pain, Shoulder Pain, Arm Pain, Back Pain, Hand Pain, Leg Pain, Foot Pain, Other - Medications/Allergies Allergies/Adverse Reactions: Allergies Allergy/AdvReac Type Severity Reaction Status Date / Time clopidogrel [From Plavix] Allergy Verified 03/01/18 10:52 Penicillins Allergy Verified 03/01/18 10:52 Medications: Current Medications Acetaminophen (Tylenol) 650 mg PO Q4H PRN PRN Reason: Headache/Fever or Pain Ceftriaxone Sodium 1 gm/ (Sodium Chloride) 100 mls @ 200 mls/hr IVPB 1100 BRIDGETT Last Admin: 03/03/18 11:01 Dose: 100 mls Miscellaneous Medication (Pharmacy To Dose) 1 each PO PRN PRN PRN Reason: Pharmacy to dose Miscellaneous Medication (Pharmacy To Dose) 1 each IVPB PRN PRN PRN Reason: Pharmacy to dose Nystatin (Mycostatin Powder) 0 gm TOP BID PRN PRN Reason: Topical Irritations Potassium Chloride (K-Dur) 40 meq PO 1000,1700 BRIDGETT Stop: 03/03/18 17:01 Last Admin: 03/03/18 11:00 Dose: 40 meq Warfarin Sodium (Coumadin) 2.5 mg PO 1700 BRIDGETT
[2018-03-03] MEDS ORDERED: Potassium Chloride 20 MEQ TAB PO SCH (17:00)
[2018-03-04 04:42] LABS: INR-International Normal Ratio 2.5; Prothrombin Time 27.6 SEC (12.0-14.7)
[2018-03-04 08:38] LABS: Hemoglobin 12.8 g/dL (14.0-18.0); Mean Corpuscular HGB CONC 32.1 g/dL (32.0-36.0); Mean Corpuscular Hemoglobin 30.4 pg (27.0-31.0); Mean Corpuscular Volume 94.9 fl (80.0-94.0); Platelet Count 224 thou/uL (130-400); RBC Distribution Width 13.1 % (11.5-14.5); Red Blood Cell (RBC) Count 4.22 mill/uL (4.70-6.10); White Blood Cell (WBC) Count 7.4 thou/uL (4.8-10.8)
[2018-03-04 08:54] LABS: Anion Gap 11 mmol/L (10-20); BUN (Urea Nitrogen) 14 mg/dL (8.4-25.7); Calc. Creatinine Clearance 79 mL/min (70-130); Calcium 8.4 mg/dL (7.8-10.44); Carbon Dioxide 24 mmol/L (23-31); Chloride 114 mmol/L (98-107); Estimated GFR-MDRD 85; Glucose 98 mg/dL (83-110); Magnesium 2.1 mg/dL (1.6-2.6); Potassium 4.5 mmol/L (3.5-5.1); Sodium 144 mmol/L (136-145)
[2018-03-04 09:43] LABS: Band 2 % (5-11); Eosinophils 5 % (0-10); Lymphocytes 15 % (21-51); MDiff Complete? YES; Monocytes 3 % (0-10); Neutrophil 60 % (42-75); PLT Morphology Comment Appears Adequate; RBC Morphology Normal; Reactive Lymphocytes 15 % (0-10)
[2018-03-04] MEDS: cefTRIAXone\\ROCEPHIN 1 GM in Sodium Chloride 0.9% 100 ML IVPB SCH (12:00)
[2018-03-04] MEDS ORDERED: Warfarin Sodium 2.5 MG TAB PO SCH (17:00)
--- NOTE | 2018-03-04 21:55 | PDOC.PN ---
- Subjective Encounter Start Date: 03/04/18 Encounter Start Time: 09:45 Subjective: pt up in bed sleeping - Objective Resuscitation Status: Resuscitation Status DNR:Do Not Resuscitate Vital Signs & Weight: Weight Admit Weight 208 lb 14.4 oz Weight 208 lb 14.4 oz I&O: 03/03/18 03/04/18 03/05/18 06:59 06:59 06:59 Intake Total 3743 1270 887 Output Total 1 Balance 3742 1270 887 Result Diagrams: 03/04/18 08:24 03/04/18 08:24 Phys Exam - Physical Examination HEENT: PERRLA, moist MMs, sclera anicteric, TM's clear, oral pharynx no lesions , 2+ tonsils Neck: no nodes, no JVD, supple, full ROM Respiratory: no wheezing, no rales, no rhonchi, wheezing present, clear to auscultation bilateral Cardiovascular: RRR, no significant murmur, no rub, gallop, irregular Gastrointestinal: soft, non-tender, no distention, positive bowel sounds Musculoskeletal: no edema, pulses present, edema present oriented to self Dx/Plan - Plan * 1) acute metabolic encephlopathy 2) dehydration 3) uti 4) afib plan: will continue abx for now. pending final cx. will continue iv fluids. Pt more awake today compared to yesterday. speech saw pt for possible aspiration. pt on mechanical soft diet. 03/03 will change abx per urine cx. will change abx. will discontinue Levaquin and start ceftriaxone. will discontinue iv fluids. 03/04 will rx fosfomycin x1 dose, called pharmacy drug not available. will continue iv now and on discharge will give pt one time dose Review of Systems - Review of Systems ENT: negative: Ear Pain, Ear Discharge, Nose Pain, Nose Discharge, Nose Congestion, Mouth Pain, Mouth Swelling, Throat Pain, Throat Swelling, Other Respiratory: negative: Cough, Dry, Shortness of Breath, Hemoptysis, SOB with Excertion, Pleuritic Pain, Sputum, Wheezing Cardiovascular: negative: chest pain, palpitations, orthopnea, paroxysmal nocturnal dyspnea, edema, light headedness, other Gastrointestinal: negative: Nausea, Vomiting, Abdominal Pain, Diarrhea, Constipation, Melena, Hematochezia, Other Genitourinary: negative: Dysuria, Frequency, Incontinence, Hematuria, Retention , Other - Medications/Allergies Allergies/Adverse Reactions: Allergies Allergy/AdvReac Type Severity Reaction Status Date / Time clopidogrel [From Plavix] Allergy Verified 03/01/18 10:52 Penicillins Allergy Verified 03/01/18 10:52 Medications: Current Medications Acetaminophen (Tylenol) 650 mg PO Q4H PRN PRN Reason: Headache/Fever or Pain Ceftriaxone Sodium 1 gm/ (Sodium Chloride) 100 mls @ 200 mls/hr IVPB 1100 BRIDGETT Last Admin: 03/04/18 12:00 Dose: 100 mls Miscellaneous Medication (Pharmacy To Dose) 1 each PO PRN PRN PRN Reason: Pharmacy to dose Miscellaneous Medication (Pharmacy To Dose) 1 each IVPB PRN PRN PRN Reason: Pharmacy to dose Nystatin (Mycostatin Powder) 0 gm TOP BID PRN PRN Reason: Topical Irritations Warfarin Sodium (Coumadin) 2.5 mg PO 1700 BRIDGETT Last Admin: 03/04/18 18:26 Dose: 2.5 mg
[2018-03-05 05:11] LABS: Prothrombin Time 23.6 SEC (12.0-14.7)
--- NOTE | 2018-03-05 06:15 | PDOC.EVN ---
Event Note - Event Note Event Note: spoke with pt's daugher in details about code status. Explained to her difference between DNR and DNT. Pt's daughter paul butler initially felt she was unsure to make such changes due to emotional reasons. Explained to her what her father would want in the event if he could not enjoy food or be bed bound and on life support. She states that she would not want that for her father and nor would her father want that. I did explain to her that his physical ability currently is limited and in an event of cardiac arrest, if he survived his recovery would be guarded. Especially since he has significant dementia. She understands that we will not do any heroic measures to resuscitate him in an event but will continue to treat all his medical issues. Therfore will make him DNR.
[2018-03-05 07:43] VITALS: BP 103/67; TEMP 98.3
--- NOTE | 2018-03-05 14:57 | DIS ---
DATE OF ADMISSION: 03/01/2018 DATE OF DISCHARGE: 03/05/2018 DISCHARGE DIAGNOSES: 1. Acute metabolic encephalopathy. 2. Dehydration. 3. Urinary tract infection. 4. Atrial fibrillation. HISTORY/HOSPITAL COURSE: The patient is a very pleasant 87-year-old with history of dementia, atrial fibrillation who lives with his family who was brought into the hospital for worsening mental status . The patient was found to have a UTI. His microbiology indicated Proteus mirabilis 2000-75,000 col sebastián. Patient initially was treated with Levaquin, which was resistant to Proteus mirabilis. It was changed to ceftriaxone, which was sensitive; however, upon discharge, the patient was given 1 dose of fosfomycin for his Proteus mirabilis. Patient has been discharged to rehab for strengthening. I di d speak with the patient's daughter extensively in regards to code status which was changed to DNR. The patient's daughter was updated about the patient's discharge. DISCHARGE MEDICATIONS: As following: Warfarin 2.5 mg daily, potassium 10 mEq b.i.d., Lasix 40 mg da wojciech, Nystatin topical b.i.d. p.r.n., fosfomycin 3 grams p.o. once and Tylenol as needed. PHYSICAL EXAMINATION: VITAL SIGNS: 98.5, 69, 16, 100% room air, blood pressure 103/67. GENERAL: He is awake, alert, oriented x3, does not appear in distress. CARDIOVASCULAR: S1, S2 present. No murmurs, rubs or gallop. ABDOMEN: Soft, nontender. Bowel sounds are present. EXTREMITIES: No edema. Pedal pulses are present x2. The patient also had a swallow evaluation and therapist stated to have a mechanical soft diet. Janeen sharif again will be discharged to rehabilitation. Follow up with primary care doctor as needed.
--- NOTE | 2018-03-08 10:03 | PQF ---
[facility] [facility] ESCOBAR [id number] T4-B- 4430 [id number] CLINICAL DOCUMENTATION CLARIFICATION FORM: POST DISCHARGE Addendum to original discharge summary date: ___THIS IS__NOT A____PATIENT UNDER MY CARE Late entry note date: __ Documentation within the Ed note and Wound care indicate the patient dominguez a Wound on the right ear- may be pressure ulcer. Please clarify the cause/type of wound on the patient right ear. Please exercise your independent, professional judgment in responding to the clarification form. Clinical indicators are provided on the bottom of this form for your review Please check appropriate box(s): I (concur) with the Wound Care findings as stated below. [ ] Pressure Ulcer: (Stage I: Erythema; Stage II: Partial thickness; Stage III : Full thickness; Stage IV: Necrosis to muscle/bone) [ ] Location: POA: [ ] Yes [ ] No [ ] Unable to determine Stage (I to IV): (Left Right Bilateral N/A ) [ ] Location: POA: [ ] Yes [ ] No [ ] Unable to determine Stage (I to IV): (Left Right Bilateral N/A ) [ ] Location: POA: [ ] Yes [ ] No [ ] Unable to determine Stage (I to IV): (Left Right Bilateral N/A ) [ ] Gangrene present [ ] Yes [ ] ischemic gangrene [ ] gas gangrene [ ] No [ ] No pressure ulcer diagnosis [ ] Deep tissue injury [ ] Other diagnosis [ ] Unable to determine In addition, please specify: Present on Admission (POA): [ ] Yes [ ] No [ ] Unable to determine For continuity of documentation, please document condition throughout progress notes and discharge summary. Thank You. CLINICAL INDICATORS - SIGNS / SYMPTOMS / LABS Open wound to right ear Pre-ulcer skin changes limited to persistent focal edema (Stage 1) Abrasion, blister, partial thickness skin loss involving epidermis and/or dermis (Stage 2) Full thickness skin loss involving damage or necrosis of SQ tissue. (Stage 3) Necrosis of soft tissue through to underlying muscle, tendon, or bone. (Stage 4) Purple or maroon discolored skin or blood filled blister RISK FACTORS: Immobility/ bedridden/ debility periperal vascular disease TREATMENTS: Wound care consult Specialty mattress Wound care (This form is maintained as a part of the permanent medical record) 2014 [employer] All Rights Reserved [email or web address] [phone] MTDD
--- NOTE | 2018-03-15 08:02 | PQF ---
[facility] [employer] [facility] ESCOBAR [id number] T4-B- 4430 [id number] CLINICAL DOCUMENTATION CLARIFICATION FORM: POST DISCHARGE Addendum to original discharge summary date: ____ Late entry note date: __ Documentation within the Ed note and Wound care indicate the patient dominguez a Wound on the right ear- may be pressure ulcer. Please clarify the cause/type of wound on the patient right ear. Please exercise your independent, professional judgment in responding to the clarification form. Clinical indicators are provided on the bottom of this form for your review Please check appropriate box(s): ____x___ I (concur) with the Wound Care findings as stated below. [ ] Pressure Ulcer: (Stage I: Erythema; Stage II: Partial thickness; Stage III : Full thickness; Stage IV: Necrosis to muscle/bone) [ ] Location: POA: [ ] Yes [ ] No [ ] Unable to determine Stage (I to IV): (Left Right Bilateral N/A ) [ ] Location: POA: [ ] Yes [ ] No [ ] Unable to determine Stage (I to IV): (Left Right Bilateral N/A ) [ ] Location: POA: [ ] Yes [ ] No [ ] Unable to determine Stage (I to IV): (Left Right Bilateral N/A ) [ ] Gangrene present [ ] Yes [ ] ischemic gangrene [ ] gas gangrene [ ] No [ ] No pressure ulcer diagnosis [ ] Deep tissue injury [ ] Other diagnosis [ ] Unable to determine In addition, please specify: Present on Admission (POA): [ x] Yes [ ] No [ ] Unable to determine For continuity of documentation, please document condition throughout progress notes and discharge summary. Thank You. CLINICAL INDICATORS - SIGNS / SYMPTOMS / LABS Open wound to right ear Pre-ulcer skin changes limited to persistent focal edema (Stage 1) Abrasion, blister, partial thickness skin loss involving epidermis and/or dermis (Stage 2) Full thickness skin loss involving damage or necrosis of SQ tissue. (Stage 3) Necrosis of soft tissue through to underlying muscle, tendon, or bone. (Stage 4) Purple or maroon discolored skin or blood filled blister RISK FACTORS: Immobility/ bedridden/ debility periperal vascular disease TREATMENTS: Wound care consult Specialty mattress Wound care (This form is maintained as a part of the permanent medical record) 2014 [employer]. All Rights Reserved [email or web address] [phone] MTDD
--- NOTE | 2018-03-16 16:12 | EKG ---
Test Reason : FEVER Blood Pressure : / mmHG Vent. Rate : 097 BPM Atrial Rate : 092 BPM P-R Int : 000 ms QRS Dur : 142 ms QT Int : 400 ms P-R-T Axes : 000 -59 -22 degrees QTc Int : 508 ms Atrial fibrillation Indeterminate axis Right bundle branch block Possible Lateral infarct , age undetermined Inferior infarct , age undetermined Abnormal ECG Confirmed by SHERRILL SAAB, QUINTIN ([id number]), food editor HEIDI JONES ([id number]) on 03/16/2018 4:11:50 PM Referred By: Confirmed By:QUINTIN MCCARTNEY MD
--- NOTE | 2018-03-20 10:50 | PQF ---
[facility] ESCOBAR [id number] T4-B- 4430 [id number] CLINICAL DOCUMENTATION CLARIFICATION FORM: POST DISCHARGE Addendum to original discharge summary date: ____ Late entry note date: __ Your assistance is needed to assign the appropriate diagnosis/condition related to abnormal BUN and Creatine Please exercise your independent, professional judgment in responding to the clarification form. Clinical indicators are provided on the bottom of this form for your review Please check appropriate box(s): [ ] Associated Diagnosis: (specify diagnosis/condidtion) [ ] abnormal lab values only- [ ] Unable to determine In addition, please specify: Present on Admission (POA): [ ] Yes [ ] No [ ] Unable to determine For continuity of documentation, please document condition throughout progress notes and discharge summary. Thank You. CLINICAL INDICATORS - SIGNS / SYMPTOMS/ LABS are present in the medical record: Lab Results: BUN = 35 Creat = 1.40 RISK FACTORS sepsis TREATMENT IVF (specify) (This form is maintained as a part of the permanent medical record) 2014 [employer] All Rights Reserved [email or web address] [phone] MTDD
== END 2018-03-05 11:55 | DRG 640 ==
LOC: ERS 01:41 → T4-B 06:37
PROVIDERS: ADMIT Internal Medicine; ATTEND Internal Medicine
DX: E86.0 Dehydration (principal); G93.41 Metabolic encephalopathy; N39.0 Urinary tract infection, site not specified; J44.9 Chronic obstructive pulmonary disease, unspecified; Z66 Do not resuscitate; R79.89 Other specified abnormal findings of blood chemistry; I48.2 Chronic atrial fibrillation; I25.10 Atherosclerotic heart disease of native coronary artery without angina pectoris; I73.9 Peripheral vascular disease, unspecified; I87.8 Other specified disorders of veins; F03.90 Unspecified dementia, unspecified severity, without behavioral disturbance, psychotic disturbance, mood disturbance, and anxiety; L89.819 Pressure ulcer of head, unspecified stage; B96.4 Proteus (mirabilis) (morganii) as the cause of diseases classified elsewhere; E66.9 Obesity, unspecified; Z88.0 Allergy status to penicillin; Z88.8 Allergy status to other drugs, medicaments and biological substances; Z95.5 Presence of coronary angioplasty implant and graft; Z79.899 Other long term (current) drug therapy; Z79.01 Long term (current) use of anticoagulants; Z90.79 Acquired absence of other genital organ(s); Z87.440 Personal history of urinary (tract) infections; Z95.0 Presence of cardiac pacemaker; Z68.31 Body mass index [BMI] 31.0-31.9, adult
CPT/HCPCS: 36415; 51701; 71045; 80048; 80053; 81003; 81015; 83605; 83735; 85007; 85025; 85027; 85610; 87040; 87077; 87086; 87186; 93005; 96361; 96365; G8978-GP-CM; G8979-GP-CK; G8987-GO-CL; G8988-GO-CK; G8996-GN-CK; G8997-GN-CJ; J0696; J1956; J3370; J3480; J7050